=== PATIENT | male | born 1985 | race Caucasian/White ===

== ENCOUNTER 2017-11-23 07:39 | Emergency (ER) | payer OTHER ==
[~2017-11-23] VITALS: Ht 177.8 cm; Wt 63.5 kg
[2017-11-23 07:59] VITALS: TEMP 37.1; Ht 177.8 cm; Wt 63.5 kg
[2017-11-23] MEDS ORDERED: IBUPROFEN 600 MG TAB PO STA (08:33)
[2017-11-23] MEDS ORDERED: HYDR-5688 PO (08:41)
[2017-11-23] MEDS ORDERED: AMOX500C3 PO (08:41)
[2017-11-23 09:00] VITALS: BP 140/90; PULSE 70; O2SAT 98
--- NOTE | 2017-11-23 17:38 | EMERGENCY ROOM VISIT NOTE ---
ED Visit Note First contact with patient: 08:08 CHIEF COMPLAINT: Dental pain HISTORY OF PRESENT ILLNESS: This 31-year-old white male patient has had a progressive toothache for the last 2 days. He denies any trauma. The pain is now steady and severe and radiates to the upper lip. they have been unable to see a dentist. Denies facial swelling, chills, sweats, or fever. No nausea or vomiting. No foul taste. Pain is 7/10. He states he has poor dentition and has multiple issues with his teeth. No treatment yet other than [place]. REVIEW OF SYSTEMS: Head: No headache, injury or neck pain. Throat: No sore throat, dysphagia, or hoarseness. Neck: No stiffness, or swelling. Respiratory: No cough, change in sputum, wheezes, hemoptysis, shortness of breath, or stridor. PMH: Supplemental sheet was reviewed and signed. Previous Surgeries: Appendectomy 2004 Medical history: Significant for poor dentition otherwise unremarkable Family history: Significant for heart disease, hypertension, and cancer. Parents are living. Current medications: None Allergies: NKDA SOCIAL HISTORY: Patient lives at home with his girlfriend and 3 kids. Employed. Tobacco use of a pack per day. No EtOH use. PHYSICAL EXAM: Vital Signs: Afebrile. Reviewed and filed in patient's chart. General: Well-developed, well-nourished, young white male, in no acute distress. He appears in some discomfort. He is sitting on a bed. Alert and oriented. Skin: Warm and dry with good turgor. No rashes or lesions. No ecchymosis or erythema. The patient is not diaphoretic. No abrasions. HEENT : Normocephalic atraumatic. Eyes PERRLA, EOMI. No conjunctiva or scleral injection. Nares patent bilaterally without turbinate enlargement. No significant drainage. No epistaxis. Oropharynx without erythema or exudate. Uvula midline, oral mucosa moist. No lesions present. Generally poor dentition with almost every tooth with decay. The tooth in question, the right upper canine, is very carious and the gum tissue is tender around it. No edema or pointing. It is nonfluctuant. Tooth is not loose. There is no facial swelling, cervical or submandibular lymphadenopathy. He does have extensive plaque on the teeth as well as visible caries. DIAGNOSIS: Dental pain DISCHARGE INSTRUCTIONS & TREATMENT: The patient was educated regarding today's findings. Conservative care measures were discussed. [place] 5mg every 6 hours if needed for pain. Driving precautions were given. Amoxil 500 mg 3 times a day for 10 days. See a dentist as soon as possible for definitive care. [place] gargles after every meal. Continue Orajel or oil of clove for breakthrough pain. Toothache handout was provided. He was reassured that I do not suspect abscess at this point. Current/Historical Medications Scheduled Amoxicillin (Amoxil), 500 MG PO TID Scheduled PRN Hydrocodone/Acetaminophen 5MG/325MG ([place] 5MG/325MG), 1-2 TABLET PO Q6H PRN for Pain Allergies Coded Allergies: No Known Allergies (Unverified , 11/23/17) Vital Signs Date Time Temp Pulse Resp B/P (MAP) Pulse Ox O2 Delivery O2 Flow Rate FiO2 11/23/17 09:00 70 20 140/90 98 11/23/17 07:59 37.1 82 20 149/92 99 Room Air Medications Administered Medications (Trade) Dose Ordered Sig/Christiano Route Start Time Stop Time Status Last Admin Dose Admin Ibuprofen (Motrin Tab) 600 mg NOW STAT PO 11/23/17 08:33 11/23/17 08:34 DC 11/23/17 08:57 600 MG Departure Information Impression Primary Impression: Pain due to dental caries Dispostion Home / Self-Care Condition FAIR Prescriptions Hydrocodone/Acetaminophen 5MG/325MG ([place] 5MG/325MG) Tab 1-2 TABLET PO Q6H Y for Pain, #10 TAB For Initial Treatment Prov: Lopez Bah,P.A. 11/23/17 Amoxicillin (AMOXIL) 500 Mg Cap 500 MG PO TID, #30 CAP Prov: Lopez Bah,P.A. 11/23/17 Forms HOME CARE DOCUMENTATION FORM, SPECIAL NARCOTICS INSTRUCTIONS, MOTRIN USE, TYLENOL USE, IMPORTANT VISIT INFORMATION Patient Instructions My [facility] Additional Instructions Continue to brush your teeth Amoxil 1 pill 3 times a day 10 days Follow-up with a dentist within 2 weeks Tylenol and Motrin every 6 hours as needed for discomfort Substitute [place] 5 mg every 6 hours as needed for severe pain-no driving Topical agents such as Orajel or oil of clove may also improve pain control
== END 2017-11-23 09:19 | disposition home or self-care (01) ==
LOC: C.EDB 07:41 → C.EDA 09:19
DX: K08.89 Other specified disorders of teeth and supporting structures (principal); K02.9 Dental caries, unspecified; F17.210 Nicotine dependence, cigarettes, uncomplicated